=== PATIENT | male | born 1995 ===

== ENCOUNTER 2023-04-29 13:36 | Emergency (ER) | payer SELFPAY ==
--- NOTE | 2023-04-29 14:25 | ED ---
General Adult HPI <Jenae Fitch - Last Filed: 04/29/23 14:22> - General Source: patient, RN notes reviewed, old records reviewed <Kam Lorenzana - Last Filed: 04/29/23 22:47> - General Stated complaint: Detox Time Seen by Provider: 04/29/23 14:25 - History of Present Illness Initial comments: The patient is a 28-year-old gentleman with a history of possible irregular EKG changes presents emergency room with request for cardiac clearance. He went to [facility] to be admitted for drug detox however he had mentioned the might of had a heart attack 1-2 years ago and they have had an irregular EKG in the past with a sent him here to get clearance before entering their program. He denies any chest pain or shortness breath. Denies any symptoms at this time. (Jenae Fitch) Patient originally evaluated as a quick no. Was sent from [facility] for evaluation. May have had a heart attack previously but it could be related to polysubstance abuse. Also may have a history of arrhythmia. Currently has no acute complaints. He has chronic intermittent chest discomfort which she expenses on a daily basis and is currently not bothering him. Denies any other acute complaints at this time including shortness of breath, fevers, chills, cough. Presents for evaluation. (Kam Lorenzana) - Related Data Allergies Allergy/AdvReac Type Severity Reaction Status Date / Time No Known Allergies Allergy Verified 04/29/23 14:24 Review of Systems ROS Other: All systems not noted in ROS Statement are negative. <Jenae Fitch - Last Filed: 04/29/23 14:22> ROS Other: All systems not noted in ROS Statement are negative. <Kam Lorenzana - Last Filed: 04/29/23 22:47> ROS Statement: Those systems with pertinent positive or pertinent negative responses have been documented in the HPI. Review of Systems: CONST: Denies fever EYES: Denies blurry vision ENT: Denies nasal congestion C/V: Denies Chest pain RESP: Denies shortness of breath GI: Denies abdominal pain : Denies dysuria SKIN: Denies rash. MSK: Denies joint pain. NEURO: Denies headache (Kam Lorenzana) General Exam <Jenae Fitch - Last Filed: 04/29/23 14:22> <Kam Lorenzana - Last Filed: 04/29/23 22:47> - General Exam Comments Initial Comments: Visual Physical Exam Vital signs reviewed General: Well-appearing, nontoxic, no acute distress. Head: Normocephalic, atraumatic Eyes: PERRLA, EOMI ENT: Airway patent Chest: Nonlabored breathing Skin: No visual rash, normal skin tone Neuro: Alert and oriented 3 Musculoskeletal: No gross abnormalities (Jenae Fitch) General: Appears in no acute distress. HEAD: Normal with no signs of head trauma. EYES: PERRLA, EOMI, conjunctiva normal, no discharge. ENT: Hearing grossly intact, normal oropharynx. RESPIRATORY: Clear breath sounds bilaterally. No wheezes, rales, or rhonchi. C/V: Regular rate and rhythm. S1 and S2 auscultated, no edema, peripheral pulses 2+ and intact throughout ABD: Abd is soft, nontender, nondistended EXT: Normal range of motion, no obvious deformity SKIN: No rashes or lesions observed on exposed skin. NEURO: Alert and oriented x 4. (Kam Lorenzana) Course Vital Signs 04/29/23 04/29/23 04/29/23 14:19 16:06 16:07 Temperature 97.2 F L 97.8 F Pulse Rate 86 84 Pulse Rate [ 85 Motor And Generator Brush Maker ] Respiratory 17 18 Rate Blood Pressure 117/73 104/65 O2 Sat by Pulse 97 98 Oximetry Medical Decision Making <Jenae Fitch - Last Filed: 04/29/23 14:22> - Lab Data Result diagrams: 04/29/23 14:49 04/29/23 14:49 - EKG Data -: EKG Interpreted by Me <Kam Lorenzana - Last Filed: 04/29/23 22:47> - Medical Decision Making Quick note portion completed by myself, signed WING Timmons. (Jenae Fitch) Was pt. sent in by a medical professional or institution (, PA, FINAL CIGAR AND BOX EXAMINER, urgent care, hospital, or shelter...) When possible be specific @ -No Did you speak to anyone other than the patient for history (EMS, parent, family, police, friend...)? What history was obtained from this source @ -No Did you review nursing and triage notes (agree or disagree)? Why? @ -I reviewed and agree with nursing and triage notes Were old charts reviewed (outside hosp., previous admission, EMS record, old EKG, old radiological studies, urgent care reports/EKG's, shelter records)? Report findings @ -Old charts reviewed Differential Diagnosis (chest pain, altered mental status, abdominal pain women, abdominal pain men, vaginal bleeding, weakness, fever, dyspnea, syncope, headache, dizziness, GI bleed, back pain, seizure, CVA, palpatations, mental health, musculoskeletal)? @ -Electrolyte abnormality, cardiac etiology for prior chest discomfort, medical clearance. This list is not all inclusive. EKG interpreted by me (3pts min.). @ -As above X-rays interpreted by me (1pt min.). @ -None done CT interpreted by me (1pt min.). @ -None done U/S interpreted by me (1pt. min.). @ -None done What testing was considered but not performed or refused? (CT, X-rays, U/S, labs)? Why? @ -None What meds were considered but not given or refused? Why? @ -None Did you discuss the management of the patient with other professionals (professionals i.e. , PA, FINAL CIGAR [employer] BOX EXAMINER, lab, RT, psych nurse, adoption social worker, aircraft metalsmith, teacher, staff submarine warfare officer, residential case manager)? Give summary @ -No Was smoking cessation discussed for >3mins.? @ -No Was critical care preformed (if so, how long)? @ -No Were there social determinants of health that impacted care today? How? (Homelessness, low income, unemployed, alcoholism, drug addiction, transportation, low edu. Level, literacy, decrease access to med. care, usp, rehab)? @ -No Was there de-escalation of care discussed even if they declined (Discuss DNR or withdrawal of care, Hospice)? DNR status @ -No What co-morbidities impacted this encounter? (DM, HTN, Smoking, COPD, CAD, Cancer, CVA, ARF, Chemo, Hep., AIDS, mental health diagnosis, sleep apnea, morbid obesity)? @ -None Was patient admitted / discharged? Hospital course, mention meds given and route, prescriptions, significant lab abnormalities, going to OR and other pertinent info. @ -Based on the patient's presentation and physical exam, presents for clearance prior to [facility] evaluation for rehab. His polysubstance abuse including meth. We will obtain a cardiopulmonary labs which were done in triage as well as screening EKG. Vital signs within acceptable limits. No significant complaints at this time. EKG shows no signs of acute ischemia. Laboratory studies within acceptable limits. I discussed results patient. As he is relatively asymptomatic, with likely that this time, I'm in agreement with this. No obvious acute cardiac etiology at this time. He will be discharged home back to [facility]. Strict return precautions discussed. I instructed the patient to follow up with their PCP in the next 1-3 days. I explained that the patient should return to the emergency department if they ex perience any worsening symptoms. Strict return precautions were discussed with the patient. The patient expressed understanding of these instructions. I answered all questions that the patient had. The patient was discharged home in good condition with their prescriptions and follow up information. Undiagnosed new problem with uncertain prognosis? @ -No Drug Therapy requiring intensive monitoring for toxicity (Heparin, Nitro, Insulin, Cardizem)? @ -No Were any procedures done? @ -No Diagnosis/symptom? @ -Encounter for general medical examination, polysubstance abuse Acute, or Chronic, or Acute on Chronic? @ -Acute Uncomplicated (without systemic symptoms) or Complicated (systemic symptoms)? @ -Complicated Side effects of treatment? @ -No Exacerbation, Progression, or Severe Exacerbation? @ -No Poses a threat to life or bodily function? How? (Chest pain, [place], VA, pneumonia, PE, COPD, DKA, ARF, appy, cholecystitis, CVA, Diverticulitis, Homicidal, Suicidal, threat to staff... and all critical care pts) @ -No (Kam Lorenzana) - Lab Data Lab Results 04/29/23 04/29/23 04/29/23 Range/Units 14:49 14:49 14:49 WBC 4.5 (3.8-10.6) k/uL RBC 5.17 (4.30-5.90) m/uL Hgb 14.9 (13.0-17.5) gm/dL Hct 44.0 (39.0-53.0) % MCV 85.1 (80.0-100.0) fL MCH 28.7 (25.0-35.0) pg MCHC 33.7 (31.0-37.0) g/dL RDW 14.2 (11.5-15.5) % Plt Count 235 (150-450) k/uL MPV 7.6 Neutrophils % 64 % Lymphocytes % 28 % Monocytes % 4 % Eosinophils % 2 % Basophils % 1 % Neutrophils # 2.9 (1.3-7.7) k/uL Lymphocytes # 1.2 (1.0-4.8) k/uL Monocytes # 0.2 (0-1.0) k/uL Eosinophils # 0.1 (0-0.7) k/uL Basophils # 0.0 (0-0.2) k/uL Sodium 139 (137-145) mmol/L Potassium 4.1 (3.5-5.1) mmol/L Chloride 102 (98-107) mmol/L Carbon Dioxide 26 (22-30) mmol/L Anion Gap 11 mmol/L BUN 12 (9-20) mg/dL Creatinine 0.84 (0.66-1.25) mg/dL Est GFR (CKD-EPI)AfAm >90 (>60 ml/min/1.73 sqM) Est GFR (CKD-EPI)NonAf >90 (>60 ml/min/1.73 sqM) Glucose 96 (74-99) mg/dL Calcium 9.7 (8.4-10.2) mg/dL Total Bilirubin 0.4 (0.2-1.3) mg/dL AST 30 (17-59) U/L ALT 34 (4-49) U/L Alkaline Phosphatase 71 (38-126) U/L Troponin I <0.012 (0.000-0.034) ng/mL Total Protein 7.2 (6.3-8.2) g/dL Albumin 4.5 (3.5-5.0) g/dL - EKG Data EKG Comments: 12-lead Electrocardiogram Interpretation Note EKG was reviewed and interpreted by myself. 12-lead ECG performed at 1600 is interpreted by me as revealing normal sinus rhythm at a rate of 71 beats per minute. Curtis is normal. UT interval is 143 ms, QRS duration is 96 ms, QTc is 385 ms. Precordial leads has mild J-point elevation.. There were no ST or T wave abnormalities to suggest myocardial ischemia or injury. R wave progression across the precordium was satisfactory. By my interpretation this EKG is non- diagnostic for acute ischemia. (Kam Lorenzana) Disposition <Jenae Fitch - Last Filed: 04/29/23 14:22> Is patient prescribed a controlled substance at d/c from ED?: No Time of Disposition: 16:12 <Kam Lorenzana - Last Filed: 04/29/23 22:47> Clinical Impression: Encounter for general medical examination, Polysubstance abuse Disposition: HOME SELF-CARE Condition: Good Instructions (If sedation given, give patient instructions): Polysubstance Abuse (ED) Referrals: None,Stated [Primary Care Provider] - 1-2 days
[2023-04-29 15:35] LABS: ALT 34 U/L (4-49); AST 30 U/L (17-59); African American GFR (CKD) >90 (>60 ml/min/1.73 sqM); Albumin 4.5 g/dL (3.5-5.0); Alkaline Phosphatase 71 U/L (38-126); Anion Gap 11 mmol/L; Blood Urea Nitrogen 12 mg/dL (9-20); Calcium 9.7 mg/dL (8.4-10.2); Carbon Dioxide 26 mmol/L (22-30); Chloride 102 mmol/L (98-107); Glucose 96 mg/dL (74-99); Non-African American GFR(CKD) >90 (>60 ml/min/1.73 sqM); Potassium 4.1 mmol/L (3.5-5.1); Sodium 139 mmol/L (137-145); Total Bilirubin 0.4 mg/dL (0.2-1.3); Total Protein 7.2 g/dL (6.3-8.2)
[2023-04-29 15:50] LABS: Basophils % (A) 1 %; Eosinophils # (A) 0.1 k/uL (0-0.7); Eosinophils % (A) 2 %; HGB 14.9 gm/dL (13.0-17.5); Lymphocytes # (A) 1.2 k/uL (1.0-4.8); Lymphocytes % (A) 28 %; MCH 28.7 pg (25.0-35.0); MCHC 33.7 g/dL (31.0-37.0); MCV 85.1 fL (80.0-100.0); Mean Platelet Volume 7.6; Monocytes # (A) 0.2 k/uL (0-1.0); Monocytes % (A) 4 %; Neutrophils # (A) 2.9 k/uL (1.3-7.7); Neutrophils % (A) 64 %; Platelet Count 235 k/uL (150-450); RBC 5.17 m/uL (4.30-5.90); RDW 14.2 % (11.5-15.5); WBC 4.5 k/uL (3.8-10.6)
[2023-04-29 16:08] VITALS: BP 104/65; RESP 18; TEMP 97.8
[2023-04-29 16:31] VITALS: PULSE 85
== END 2023-04-29 17:09 | disposition home or self-care (01) ==
LOC: EC 13:36
DX: Z00.00 Encounter for general adult medical examination without abnormal findings (principal); I45.89 Other specified conduction disorders; F19.10 Other psychoactive substance abuse, uncomplicated
CPT/HCPCS: 36415; 80053; 84484; 85025; 93005; 99283